=== PATIENT | male | born 1970 | race Caucasian/White ===

== ENCOUNTER 2022-07-16 12:10 | Emergency (ER) | payer OTHER ==
[~2022-07-16] VITALS: Ht 188 cm; Wt 104.3 kg
[2022-07-16 12:10] VITALS: BP_SYST 138
[2022-07-16] MEDS ORDERED: LORazepam 1 MG TABLET PO ONE (13:45)
[2022-07-16] MEDS ORDERED: LORA-258 PO (14:11)
[2022-07-16 15:37] VITALS: BP_SYST 141
== END 2022-07-16 15:37 | disposition home or self-care (01) ==
LOC: SED 12:10
DX: F43.0 Acute stress reaction (principal); F41.9 Anxiety disorder, unspecified; R53.1 Weakness; Z88.6 Allergy status to analgesic agent; Z79.899 Other long term (current) drug therapy
CPT/HCPCS: 93005; 99283